=== PATIENT | female | born 1950 | race Two or more races ===

== ENCOUNTER 2022-01-23 09:29 | Inpatient (IN) | payer OTHER ==
[~2022-01-23] VITALS: Ht 149.9 cm; Wt 51.7 kg
[2022-01-23] MEDS ORDERED: SODIUM CHLORIDE 0.9% 1,000 ML IV ONE ×2 (10:00)
[2022-01-23 10:21] LABS: Basophils # (auto) 0 10 ^3/uL (0-0.2); Basophils % (auto) 0.1 % (0.0-2.0); Eosinophils # (auto) 0 10 ^3/uL (0-0.8); Hematocrit 31.3 % (36.0-46.0); Hemoglobin 10.4 g/dL (12.2-16.2); Lymphocytes # (auto) 1.3 10 ^3/uL (0.4-5.4); Lymphocytes % (auto) 29.9 % (10.0-50.0); Mean Corpuscular Hemoglobin 30.8 pg (28.0-32.0); Mean Corpuscular Hgb Conc. 33.1 g/dL (32.0-36.0); Mean Corpuscular Volume 93.1 fL (80.0-100.0); Monocytes # (auto) 0.4 10 ^3/uL (0-1.3); Monocytes % (auto) 9.4 % (0.0-12.0); Neutrophils # (auto) 2.6 10 ^3/uL (1.6-8.6); Neutrophils % (auto) 60.6 % (37.0-80.0); Nucleated Red Blood Cells % 0.4 %; Red Blood Cells 3.36 10^6/uL (4.0-5.20); White Blood Cell 4.4 10^3/uL (4.4-10.8)
[2022-01-23 10:33] LABS: Red Cell Distribution Width 20.2 % (11.8-14.3)
[2022-01-23 13:16] LABS: Albumin 2.9 g/dL (3.4-5.0); Calcium 8.7 mg/dL (8.5-10.1)
[2022-01-23 13:19] LABS: BUN/Creatinine Ratio 14.4; Bilirubin, Total 0.8 mg/dL (0.2-1.0); Total Protein 6.4 g/dL (6.4-8.2)
[2022-01-23 13:23] LABS: Potassium 2.9 mmol/L (3.5-5.1)
[2022-01-23] MEDS ORDERED: POTASSIUM EFFERVESENT TAB 25 MEQ PO ONE (13:30)
[2022-01-23] MEDS: POTASSIUM CHL 20MEQ/100ML 100 ML IV SCH ×3 (15:26→20:15)
[2022-01-23] MEDS ORDERED: CEFTRIAXONE SODIUM 2 GM in D5W 5% 50 ML IV SCH (15:45)
[2022-01-23] MEDS: metroNIDAZOLE 500MG/100ML 100 ML IV SCH (15:58)
[2022-01-23] MEDS ORDERED: ONDANSETRON HCL 4 MG/2 ML VIAL IV PRN (16:00)
[2022-01-23] MEDS ORDERED: PIPERACILLIN-TAZOB 2.25GM 50 ML IV ONE (18:30)
[2022-01-24] MEDS: metroNIDAZOLE 500MG/100ML 100 ML IV SCH ×4 (00:38→21:09)
[2022-01-24] MEDS ORDERED: ACETAMINOPHEN 325 MG TAB PO PRN (01:15)
[2022-01-24] MEDS ORDERED: hydrALAZINE HCL 10 MG TAB PO PRN (01:15)
[2022-01-24] MEDS ORDERED: HYDROcodone-ACET 5/325MG TAB PO PRN (01:15)
[2022-01-24] MEDS: MORPHINE SULFATE INJ 2 MG/ml SYRG IV PRN ×3 (01:48→18:10)
[2022-01-24] MEDS: ONDANSETRON HCL 4 MG/2 ML VIAL IV PRN ×2 (04:58→13:08)
[2022-01-24] MEDS: CEFTRIAXONE SODIUM 2 GM in D5W 5% 50 ML IV SCH (07:32)
[2022-01-24 09:44] LABS: Basophils # (auto) 0 10 ^3/uL (0-0.2); Eosinophils # (auto) 0 10 ^3/uL (0-0.8); Lymphocytes # (auto) 0.7 10 ^3/uL (0.4-5.4); Monocytes # (auto) 0.4 10 ^3/uL (0-1.3); Monocytes % (auto) 9.1 % (0.0-12.0); Neutrophils % (auto) 73.2 % (37.0-80.0); Nucleated Red Blood Cells % 0.4 %; Red Blood Cells 2.45 10^6/uL (4.0-5.20)
[2022-01-24 09:50] LABS: Eosinophils % (auto) 0.1 % (0.0-7.0); Hematocrit 23.4 % (36.0-46.0); Hemoglobin 7.9 g/dL (12.2-16.2); Lymphocytes % (auto) 17.6 % (10.0-50.0); Mean Corpuscular Hemoglobin 32.1 pg (28.0-32.0); Mean Corpuscular Hgb Conc. 33.5 g/dL (32.0-36.0); Mean Corpuscular Volume 95.8 fL (80.0-100.0); Red Cell Distribution Width 20.3 % (11.8-14.3); White Blood Cell 4.1 10^3/uL (4.4-10.8)
[2022-01-24 09:58] LABS: Albumin 2.3 g/dL (3.4-5.0); Calcium 7.9 mg/dL (8.5-10.1); Potassium 3.2 mmol/L (3.5-5.1)
[2022-01-24 10:01] LABS: BUN/Creatinine Ratio 20.3; Bilirubin, Total 0.5 mg/dL (0.2-1.0); Total Protein 5.4 g/dL (6.4-8.2)
[2022-01-24] MEDS ORDERED: POTASSIUM CHL 20MEQ/100ML 100 ML IV ONE (11:00)
[2022-01-24 11:19] LABS: Urine Bacteria FEW /hpf (None Seen); Urine Blood Negative /uL (Negative); Urine Specific Gravity 1.022 (1.001-1.035); Urine WBC 5 /hpf (0 - 5)
[2022-01-24] MEDS ORDERED: SODIUM BICARBONATE 8.4 % INJ 50ML VIAL IV ONE (12:00)
[2022-01-24] MEDS: SODIUM CHLORIDE 0.9% 1,000 ML IV SCH ×3 (12:24→22:34)
[2022-01-24 14:28] VITALS: BP 111/47
[2022-01-24 14:32] VITALS: BP 114/47
[2022-01-24] MEDS ORDERED: LOSA-39 PO (14:52)
[2022-01-24] MEDS ORDERED: CAPE1TAB11 PO (14:52)
[2022-01-24 17:03] VITALS: BP 120/66
[2022-01-24 22:00] VITALS: BP 122/60
[2022-01-25] MEDS: MORPHINE SULFATE INJ 2 MG/ml SYRG IV PRN (00:34)
[2022-01-25] MEDS: ONDANSETRON HCL 4 MG/2 ML VIAL IV PRN ×3 (01:56→15:01)
[2022-01-25 05:00] VITALS: BP 133/84
[2022-01-25] MEDS: metroNIDAZOLE 500MG/100ML 100 ML IV SCH ×3 (05:09→21:41)
[2022-01-25] MEDS: SODIUM CHLORIDE 0.9% 1,000 ML IV SCH (05:14)
[2022-01-25] MEDS: CEFTRIAXONE SODIUM 2 GM in D5W 5% 50 ML IV SCH (06:23)
[2022-01-25 07:15] LABS: Calcium 7.1 mg/dL (8.5-10.1)
[2022-01-25 07:17] LABS: BUN/Creatinine Ratio 25.7
[2022-01-25 08:23] VITALS: BP 99/63
[2022-01-25 12:35] VITALS: BP 104/60
[2022-01-25] MEDS: SOD CHL 0.45% 1,000 ML IV SCH ×2 (13:43→21:40)
[2022-01-25] MEDS: POTASSIUM CHL 20MEQ/100ML 100 ML IV SCH ×3 (13:44→18:11)
[2022-01-25 13:58] LABS: Basophils # (auto) 0 10 ^3/uL (0-0.2); Eosinophils # (auto) 0 10 ^3/uL (0-0.8); Eosinophils % (auto) 0.4 % (0.0-7.0); Hematocrit 26.2 % (36.0-46.0); Hemoglobin 8.2 g/dL (12.2-16.2); Lymphocytes # (auto) 0.9 10 ^3/uL (0.4-5.4); Mean Corpuscular Hemoglobin 31.3 pg (28.0-32.0); Mean Corpuscular Hgb Conc. 31.5 g/dL (32.0-36.0); Mean Corpuscular Volume 99.5 fL (80.0-100.0); Monocytes # (auto) 0.4 10 ^3/uL (0-1.3); Monocytes % (auto) 6.8 % (0.0-12.0); Neutrophils # (auto) 4.2 10 ^3/uL (1.6-8.6); Neutrophils % (auto) 75.8 % (37.0-80.0); Nucleated Red Blood Cells % 3.7 %; Red Blood Cells 2.63 10^6/uL (4.0-5.20); Red Cell Distribution Width 20.7 % (11.8-14.3); White Blood Cell 5.6 10^3/uL (4.4-10.8)
[2022-01-25 17:19] VITALS: BP 107/70
[2022-01-25] MEDS: PANTOPRAZOLE 40 MG/10 ML VIAL INJ IV SCH (18:11)
[2022-01-25 22:00] VITALS: BP 100/46
[2022-01-26 05:00] VITALS: BP 103/61
[2022-01-26] MEDS: metroNIDAZOLE 500MG/100ML 100 ML IV SCH ×2 (05:38→13:46)
[2022-01-26] MEDS: SOD CHL 0.45% 1,000 ML IV SCH ×2 (06:00→19:58)
[2022-01-26] MEDS: CEFTRIAXONE SODIUM 2 GM in D5W 5% 50 ML IV SCH (06:47)
[2022-01-26] MEDS: ONDANSETRON HCL 4 MG/2 ML VIAL IV PRN ×2 (06:54→23:30)
[2022-01-26 08:50] VITALS: BP 100/48
[2022-01-26] MEDS: PANTOPRAZOLE 40 MG/10 ML VIAL INJ IV SCH ×2 (09:14→21:34)
[2022-01-26 10:15] LABS: BUN/Creatinine Ratio 25.6; Calcium 7.7 mg/dL (8.5-10.1); Potassium 3.6 mmol/L (3.5-5.1)
[2022-01-26] MEDS: MORPHINE SULFATE INJ 2 MG/ml SYRG IV PRN (12:52)
[2022-01-26 13:00] VITALS: BP 141/81
[2022-01-26] MEDS: SODIUM FERR GLUC 62.5MG/5ML 125 MG in SODIUM CHL 0.9% 100 ML IV SCH (13:48)
[2022-01-26] MEDS ORDERED: LEVO250T69 PO (14:39)
[2022-01-26] MEDS ORDERED: METR500T PO (14:39)
[2022-01-26] MEDS ORDERED: VANCOMYCIN PER PHARMACY 0 MG IV SCH (16:00)
[2022-01-26] MEDS ORDERED: VANCOMYCIN 1GM/250ML 250 ML IV ONE (16:45)
[2022-01-26 17:00] VITALS: BP 126/65
[2022-01-26] MEDS: AMPICILLIN & SULBACTAM SODIUM 3 GM in SODIUM CHL 0.9% 100 ML IV SCH (21:06)
[2022-01-26 22:00] VITALS: BP 122/69
[2022-01-27] VITALS (10 sets, daily range): BP systolic 93–144; BP diastolic 43–83
[2022-01-27] MEDS: SOD CHL 0.45% 1,000 ML IV SCH ×4 (00:17→21:30)
[2022-01-27 02:32] LABS: Mean Corpuscular Hgb Conc. 33.7 g/dL (32.0-36.0)
[2022-01-27 02:34] LABS: Hematocrit 19.1 % (36.0-46.0); Mean Corpuscular Hemoglobin 32.9 pg (28.0-32.0); Mean Corpuscular Volume 97.8 fL (80.0-100.0); Red Blood Cells 1.95 10^6/uL (4.0-5.20); White Blood Cell 5.3 10^3/uL (4.4-10.8)
[2022-01-27 02:40] LABS: Red Cell Distribution Width 22.5 % (11.8-14.3)
[2022-01-27 02:42] LABS: Hemoglobin 6.4 g/dL (12.2-16.2)
[2022-01-27 02:46] LABS: Basophils % (manual) 0 (0.0-2.0); Blast Cells 0; Eosinophils % (manual) 0 (0-7); Monocytes % (manual) 0 (0-12); Myelocytes % 0; Promyelocytes % 0; Reactive Lymphocytes 0
[2022-01-27 04:28] LABS: BUN/Creatinine Ratio 24.8; Calcium 7.6 mg/dL (8.5-10.1); Potassium 3.1 mmol/L (3.5-5.1)
[2022-01-27] MEDS: AMPICILLIN & SULBACTAM SODIUM 3 GM in SODIUM CHL 0.9% 100 ML IV SCH ×2 (05:57→19:51)
[2022-01-27 08:31] LABS: Band Neutrophils % (manual) 26; Lymphocytes % (manual) 25 (10.0-50.0); Metamyelocytes % 1
[2022-01-27] MEDS: PANTOPRAZOLE 40 MG/10 ML VIAL INJ IV SCH ×2 (11:00→21:48)
[2022-01-27] MEDS: POTASSIUM CHL 20MEQ/100ML 100 ML IV SCH ×2 (11:35→14:44)
[2022-01-27] MEDS: SODIUM FERR GLUC 62.5MG/5ML 125 MG in SODIUM CHL 0.9% 100 ML IV SCH (13:18)
[2022-01-27] MEDS: MORPHINE SULFATE INJ 2 MG/ml SYRG IV PRN (14:42)
[2022-01-27] MEDS ORDERED: POTASSIUM CHL 20MEQ/100ML 100 ML IV ONE (14:45)
[2022-01-27] MEDS: ONDANSETRON HCL 4 MG/2 ML VIAL IV PRN (14:53)
[2022-01-27] MEDS ORDERED: CYANOCOBALAMIN (B-12) 1000 MCG/1 ML VIAL IM ONE (15:15)
[2022-01-27] MEDS ORDERED: FOLIC ACID 1 MG in D5W 5% 50 ML INJ ONE (15:15)
[2022-01-27] MEDS: MULTIPLE VITAMIN TAB PO SCH (19:08)
[2022-01-27 21:51] LABS: Hematocrit 29.6 % (36.0-46.0); Hemoglobin 9.6 g/dL (12.2-16.2); Mean Corpuscular Hemoglobin 30.8 pg (28.0-32.0); Mean Corpuscular Hgb Conc. 32.2 g/dL (32.0-36.0); Mean Corpuscular Volume 95.5 fL (80.0-100.0); Red Cell Distribution Width 20.1 % (11.8-14.3); White Blood Cell 6.5 10^3/uL (4.4-10.8)
[2022-01-27 22:30] LABS: Basophils % (manual) 0 (0.0-2.0); Blast Cells 0; Eosinophils % (manual) 0 (0-7); Metamyelocytes % 0; Myelocytes % 0; Promyelocytes % 0; Reactive Lymphocytes 0
[2022-01-27 23:04] LABS: Band Neutrophils % (manual) 8; Lymphocytes % (manual) 17 (10.0-50.0); Monocytes % (manual) 4 (0-12)
[2022-01-28] VITALS (7 sets, daily range): BP systolic 10–122; BP diastolic 60–80
[2022-01-28] MEDS: AMPICILLIN & SULBACTAM SODIUM 3 GM in SODIUM CHL 0.9% 100 ML IV SCH ×2 (05:58→17:22)
[2022-01-28] MEDS: SOD CHL 0.45% 1,000 ML IV SCH ×3 (06:05→19:25)
[2022-01-28] MEDS ORDERED: HEPARIN DRIP/D5W 100UNITS/ML 250 ML IV SCH ×2 (10:00→22:30)
[2022-01-28] MEDS ORDERED: HEPARIN SODIUM (PORCINE) 5000 UNITS/ML 1ML VIAL IV ONE ×2 (10:00→22:30)
[2022-01-28] MEDS: MULTIPLE VITAMIN TAB PO SCH (10:25)
[2022-01-28] MEDS: PANTOPRAZOLE 40 MG/10 ML VIAL INJ IV SCH ×2 (10:25→22:39)
[2022-01-28] MEDS: SODIUM FERR GLUC 62.5MG/5ML 125 MG in SODIUM CHL 0.9% 100 ML IV SCH (12:27)
[2022-01-28] MEDS ORDERED: CATHFLO ACTIVASE (ALTEPLASE) 2 MG VIAL IV ONE (17:00)
[2022-01-28] MEDS: SUCRALFATE 1 GM/10 ML ORAL SUSP PO SCH ×2 (17:20→22:39)
[2022-01-28 20:38] LABS: Hematocrit 25.8 % (36.0-46.0); Hemoglobin 8.6 g/dL (12.2-16.2); Mean Corpuscular Hemoglobin 31.5 pg (28.0-32.0); Mean Corpuscular Hgb Conc. 33.2 g/dL (32.0-36.0); Mean Corpuscular Volume 95.1 fL (80.0-100.0); Red Blood Cells 2.71 10^6/uL (4.0-5.20); Red Cell Distribution Width 20.9 % (11.8-14.3); White Blood Cell 6.1 10^3/uL (4.4-10.8)
[2022-01-28 20:44] LABS: Calcium 7.4 mg/dL (8.5-10.1); Potassium 3.4 mmol/L (3.5-5.1)
[2022-01-28 20:46] LABS: BUN/Creatinine Ratio 21.2; Basophils % (manual) 0 (0.0-2.0); Blast Cells 0; Eosinophils % (manual) 0 (0-7); Metamyelocytes % 0; Myelocytes % 0; Promyelocytes % 0; Reactive Lymphocytes 0
[2022-01-28 22:12] LABS: INR 2.34 (0.9-1.15); Partial Thromboplastin Time < 20.0 sec (24.6-33.4)
[2022-01-28 22:39] LABS: Band Neutrophils % (manual) 11; Lymphocytes % (manual) 18 (10.0-50.0); Monocytes % (manual) 4 (0-12)
[2022-01-29] VITALS (8 sets, daily range): BP systolic 93–134; BP diastolic 57–86
[2022-01-29] MEDS: SOD CHL 0.45% 1,000 ML IV SCH (03:49)
[2022-01-29 05:25] LABS: Potassium 3.3 mmol/L (3.5-5.1)
[2022-01-29 05:30] LABS: BUN/Creatinine Ratio 23.5; Calcium 7.2 mg/dL (8.5-10.1)
[2022-01-29] MEDS: AMPICILLIN & SULBACTAM SODIUM 3 GM in SODIUM CHL 0.9% 100 ML IV SCH (05:33)
[2022-01-29 05:40] LABS: INR 3.16 (0.9-1.15)
[2022-01-29] MEDS: SUCRALFATE 1 GM/10 ML ORAL SUSP PO SCH ×2 (06:26→11:04)
[2022-01-29 07:56] LABS: White Blood Cell 6.3 10^3/uL (4.4-10.8)
[2022-01-29 07:57] LABS: Basophils # (auto) 0 10 ^3/uL (0-0.2); Basophils % (auto) 0.1 % (0.0-2.0); Eosinophils # (auto) 0.1 10 ^3/uL (0-0.8); Eosinophils % (auto) 1.4 % (0.0-7.0); Lymphocytes # (auto) 1.1 10 ^3/uL (0.4-5.4); Lymphocytes % (auto) 17.4 % (10.0-50.0); Monocytes # (auto) 0.6 10 ^3/uL (0-1.3); Monocytes % (auto) 9.8 % (0.0-12.0); Neutrophils # (auto) 4.5 10 ^3/uL (1.6-8.6); Neutrophils % (auto) 71.3 % (37.0-80.0); Red Blood Cells 2.47 10^6/uL (4.0-5.20)
[2022-01-29 07:58] LABS: Hematocrit 24.1 % (36.0-46.0); Mean Corpuscular Hemoglobin 32.4 pg (28.0-32.0); Mean Corpuscular Hgb Conc. 33.2 g/dL (32.0-36.0); Mean Corpuscular Volume 97.7 fL (80.0-100.0); Red Cell Distribution Width 21.7 % (11.8-14.3)
[2022-01-29 08:52] LABS: INR 2.97 (0.9-1.15)
[2022-01-29 09:12] LABS: Partial Thromboplastin Time > 139.0 sec (24.6-33.4)
[2022-01-29 09:14] LABS: Partial Thromboplastin Time > 139.0 sec (24.6-33.4)
[2022-01-29] MEDS: MULTIPLE VITAMIN TAB PO SCH (10:00)
[2022-01-29] MEDS: PANTOPRAZOLE 40 MG/10 ML VIAL INJ IV SCH (10:57)
[2022-01-29 12:11] LABS: Hematocrit 23.1 % (36.0-46.0); Hemoglobin 7.5 g/dL (12.2-16.2)
[2022-01-29] MEDS ORDERED: SOD CHL 0.45% 1,000 ML IV SCH (13:00)
[2022-01-29] MEDS: SODIUM FERR GLUC 62.5MG/5ML 125 MG in SODIUM CHL 0.9% 100 ML IV SCH (13:10)
[2022-01-29] MEDS: MORPHINE SULFATE INJ 2 MG/ml SYRG IV PRN (16:00)
== END 2022-01-29 16:11 | disposition short-term general hospital (02) | DRG 871 ==
LOC: ER 09:29 → EDBD 09:29 → TELE 01-24 01:21 → TELE-EAST 01-24 14:02
PROVIDERS: ADMIT Nurse Practitioner Family; ATTEND Internal Medicine
PROC: 06HY33Z Insertion of Infusion Device into Lower Vein, Percutaneous Approach (ICD-10-PCS; principal; 2022-01-24)
PROC: 30233N1 Transfusion of Nonautologous Red Blood Cells into Peripheral Vein, Percutaneous Approach (ICD-10-PCS; 2022-01-27)
PROC: 05HA33Z Insertion of Infusion Device into Left Brachial Vein, Percutaneous Approach (ICD-10-PCS; 2022-01-27)
PROC: B54NZZA Ultrasonography of Left Upper Extremity Veins, Guidance (ICD-10-PCS; 2022-01-27)
DX: A41.9 Sepsis, unspecified organism (principal); I21.A1 Myocardial infarction type 2; R57.9 Shock, unspecified; J98.11 Atelectasis; N17.9 Acute kidney failure, unspecified; C19 Malignant neoplasm of rectosigmoid junction; C77.2 Secondary and unspecified malignant neoplasm of intra-abdominal lymph nodes; C78.01 Secondary malignant neoplasm of right lung; C78.02 Secondary malignant neoplasm of left lung; C78.7 Secondary malignant neoplasm of liver and intrahepatic bile duct; E87.0 Hyperosmolality and hypernatremia; I82.401 Acute embolism and thrombosis of unspecified deep veins of right lower extremity; Z20.822 Contact with and (suspected) exposure to COVID-19; I12.9 Hypertensive chronic kidney disease with stage 1 through stage 4 chronic kidney disease, or unspecified chronic kidney disease; R65.20 Severe sepsis without septic shock; R13.10 Dysphagia, unspecified; E86.0 Dehydration; R19.7 Diarrhea, unspecified; E78.5 Hyperlipidemia, unspecified; E87.6 Hypokalemia; N18.9 Chronic kidney disease, unspecified; Z79.899 Other long term (current) drug therapy; I25.2 Old myocardial infarction; Z82.49 Family history of ischemic heart disease and other diseases of the circulatory system; D64.81 Anemia due to antineoplastic chemotherapy; T45.1X5A Adverse effect of antineoplastic and immunosuppressive drugs, initial encounter; D63.1 Anemia in chronic kidney disease
CPT/HCPCS: 36415; 70450; 71045; 74176; 80048; 80053; 80202; 81001; 82270; 83605; 84132; 84484; 85007; 85014; 85018; 85025; 85027; 85610; 85730; 86850; 86900; 86901; 86920; 87040; 87045; 87086; 87427; 87493; 93005; 93971; 96361; 96365; 96366; 96368; 96375; 97110; 97116; 97163; 97530; 99291; C9113; G0378; J0696; J2405; J2543; J3480; J3490; J7060